=== PATIENT | female | born 1990 | race Caucasian/White ===

== ENCOUNTER 2018-02-02 14:41 | Outpatient (CLI) | payer BC ==
[~2018-02-02] VITALS: Ht 170.2 cm; Wt 86.2 kg
[~2018-02-02 14:41] MED LIST: BACTRIM,SEPT1 TABLET PO; ENDOCET 5-3251 EACH PO; FLINTSTONES1 EACH PO; IBUPROFEN800 MG PO; IRON18 MG PO; Motrin PO; Percocet 5/325,Endoc PO; ZOFRAN8 MG PO
[2018-02-02 14:56] VITALS: BP 121/87
[2018-02-02 15:08] VITALS: BP 128/92
[2018-02-02] MEDS ORDERED: PRENA1 CHEW TA1.4 MG PO (15:19)
[2018-02-02 15:20] VITALS: BP 120/72
[2018-02-02 15:40] LABS: BASOPHIL (%) 0.2 % (0-1); EOSINOPHIL COUNT 0.1 K/uL (0-0.3); HEMATOCRIT 33.3 % (36.0-46.0); HEMOGLOBIN 11.4 G/DL (11.9-15.5); IMMATURE GRANULOCYTE (%) 0.6 % (0.0-0.7); LYMPHOCYTE (%) 15.8 % (15-42); LYMPHOCYTE COUNT 1.3 K/uL (1.0-2.8); MCH 30.1 PG (29.0-34.0); MCHC 34.2 G/DL (30.0-36.0); MCV 87.9 FL (83-99); MONOCYTE (%) 10.9 % (3-12); MONOCYTE COUNT 0.9 K/uL (0-0.8); NEUTROPHIL (%) 71.5 % (45-76); NEUTROPHIL COUNT 5.9 K/uL (1.8-6.4); PLATELET COUNT 204 K/uL (156-360); RBC DIS.WIDTH-CV 12.9 % (11.8-14.6); RBC DIS.WIDTH-SD 41.1 % (39-53); RED BLOOD COUNT 3.79 M/uL (3.80-5.20); WHITE BLOOD COUNT 8.2 K/uL (4.1-10.2)
[2018-02-02 15:50] VITALS: BP 124/78
[2018-02-02 15:50] LABS: ALBUMIN 3.4 g/dL (3.2-4.8); CHLORIDE 105 mEq/L (99-109); SODIUM 135 mEq/L (136-147)
[2018-02-02 15:52] LABS: GLUCOSE 88 mg/dL (70-99); TOTAL PROTEIN 6.7 g/dL (6.4-8.3)
[2018-02-02 15:54] LABS: TOTAL BILIRUBIN 0.3 mg/dL (0.0-1.0)
[2018-02-02 15:56] LABS: ALKALINE PHOSPHATASE 112 IU/L (3-129); CREATININE 0.7 mg/dL (0.6-1.3); GFR ESTIMATE (CALCULATED) > 59 mL/min/
[2018-02-02 15:57] LABS: UREA NITROGEN (BUN) 10 mg/dL (9-23)
[2018-02-02 15:58] LABS: AST (GOT) 13 IU/L (2-34)
[2018-02-02 15:59] LABS: ALT (GPT) 6 IU/L (3-49)
[2018-02-02 16:02] LABS: UR CREATININE CONCENTRATION 68.9 MG/DL
== END 2018-02-02 16:20 | disposition home or self-care (01) ==
LOC: LDRP-OP 14:41 → 2WEST 14:42 → LDRP-OP 04-01 09:27
PROVIDERS: Nurse Practitioner
DX: O36.8130 Decreased fetal movements, third trimester, not applicable or unspecified (principal); O26.893 Other specified pregnancy related conditions, third trimester; R42 Dizziness and giddiness; R51 Headache; R11.0 Nausea; O99.613 Diseases of the digestive system complicating pregnancy, third trimester; R12 Heartburn; O99.343 Other mental disorders complicating pregnancy, third trimester; F41.9 Anxiety disorder, unspecified; O99.413 Diseases of the circulatory system complicating pregnancy, third trimester; I77.89 Other specified disorders of arteries and arterioles; Z3A.36 36 weeks gestation of pregnancy
CPT/HCPCS: 59025; 80053; 82570; 84156; 85025; G0378

== ENCOUNTER 2018-02-12 20:11 | Outpatient (CLI) | payer BC ==
[~2018-02-12] VITALS: Ht 170.2 cm; Wt 87.1 kg
[~2018-02-12 20:11] MED LIST changes: +PRENA1 CHEW TA1.4 MG PO
[2018-02-12 20:32] VITALS: BP 129/82
[2018-02-12] MEDS ORDERED: ZOFRAN4 MG PO (20:56)
== END 2018-02-12 21:07 | disposition home or self-care (01) ==
LOC: LDRP-OP 20:11 → 2WEST 20:12 → LDRP-OP 04-01 16:35
DX: O36.8130 Decreased fetal movements, third trimester, not applicable or unspecified (principal); Z3A.37 37 weeks gestation of pregnancy
CPT/HCPCS: 59025; G0378

== ENCOUNTER 2018-02-26 06:43 | Inpatient (IN) | payer BC ==
[2018-02-26] VITALS (17 sets, daily range): BP systolic 118–141; BP diastolic 64–87
[~2018-02-26] VITALS: Ht 170.2 cm; Wt 87.9 kg
[~2018-02-26 06:43] MED LIST changes: +ZOFRAN4 MG PO
[2018-02-26 07:33] LABS: BASOPHIL (%) 0.5 % (0-1); EOSINOPHIL (%) 1.1 % (0-5); EOSINOPHIL COUNT 0.1 K/uL (0-0.3); HEMOGLOBIN 11.3 G/DL (11.9-15.5); IMMATURE GRANULOCYTE (%) 0.5 % (0.0-0.7); LYMPHOCYTE (%) 15.5 % (15-42); LYMPHOCYTE COUNT 1.4 K/uL (1.0-2.8); MCH 29.4 PG (29.0-34.0); MCHC 33.2 G/DL (30.0-36.0); MCV 88.3 FL (83-99); MONOCYTE (%) 9.1 % (3-12); MONOCYTE COUNT 0.8 K/uL (0-0.8); NEUTROPHIL (%) 73.3 % (45-76); NEUTROPHIL COUNT 6.4 K/uL (1.8-6.4); PLATELET COUNT 192 K/uL (156-360); RBC DIS.WIDTH-CV 13.3 % (11.8-14.6); RBC DIS.WIDTH-SD 43.3 % (39-53); RED BLOOD COUNT 3.85 M/uL (3.80-5.20); WHITE BLOOD COUNT 8.7 K/uL (4.1-10.2)
[2018-02-26 08:19] LABS: AMPHETAMINE NEGATIVE (500 ng/mL); BARBITURATES NEGATIVE (200 ng/mL); BENZODIAZEPINES NEGATIVE (150 ng/mL); BUPRENORPHINE NEGATIVE (10 ng/mL); COCAINE NEGATIVE (150 ng/mL); METHADONE NEGATIVE (200 ng/mL); METHAMPHETAMINE NEGATIVE (500 ng/mL); OPIATES (MORPHINE) NEGATIVE (100 ng/mL); OXYCODONE NEGATIVE (100 ng/mL); PHENCYCLIDINE NEGATIVE (25 ng/mL); PROPOXYPHENE NEGATIVE (300 ng/mL); THC CANNABINOIDS NEGATIVE (50 ng/mL); TRICYCLIC ANTIDEPRESSANTS NEGATIVE (300 ng/mL)
[2018-02-26] MEDS ORDERED: MOTRIN800 MG PO (12:26)
[2018-02-27 07:37] VITALS: BP 119/68
[2018-02-27 10:05] LABS: TREPONEMA ANTIBODY NEGATIVE (NEGATIVE)
[2018-02-27 14:40] VITALS: BP 122/74
[2018-02-27 23:41] VITALS: BP 122/69
[2018-02-28 07:52] VITALS: BP 131/87
== END 2018-02-28 10:15 | disposition home or self-care (01) | DRG 775 ==
LOC: LDRP-OP 06:43 → 2WEST 06:44 → LDRP-OP 04-01 21:16
PROVIDERS: Nurse Practitioner
PROC: 0HQ9XZZ Repair Perineum Skin, External Approach (ICD-10-PCS; principal; 2018-02-26)
PROC: 10907ZC Drainage of Amniotic Fluid, Therapeutic from Products of Conception, Via Natural or Artificial Opening (ICD-10-PCS; principal; 2018-02-26)
PROC: 00HU33Z Insertion of Infusion Device into Spinal Canal, Percutaneous Approach (ICD-10-PCS; principal; 2018-02-26)
PROC: 10E0XZZ Delivery of Products of Conception, External Approach (ICD-10-PCS; principal; 2018-02-26)
PROC: 3E0R3BZ Introduction of Anesthetic Agent into Spinal Canal, Percutaneous Approach (ICD-10-PCS; principal; 2018-02-26)
DX: O70.0 First degree perineal laceration during delivery (principal); Z37.0 Single live birth; Z3A.39 39 weeks gestation of pregnancy
CPT/HCPCS: 85025; 86780; C1755; J3010; J7120

== ENCOUNTER → 2018-03-03 | Outpatient (CLI) | payer BC ==
[~2018-03-03] MED LIST changes: +MOTRIN800 MG PO
== END | disposition home or self-care (01) ==
LOC: LAC 12:03
DX: Z39.1 Encounter for care and examination of lactating mother (principal); O92.13 Cracked nipple associated with lactation; O92.79 Other disorders of lactation; Z87.2 Personal history of diseases of the skin and subcutaneous tissue; Z98.890 Other specified postprocedural states
CPT/HCPCS: G0463